=== PATIENT | female | born 1980 | race Caucasian/White ===

== ENCOUNTER 2021-06-22 02:12 | Emergency (ER) | payer SELFPAY ==
[~2021-06-22] VITALS: Ht 167.6 cm; Wt 50.0 kg
[2021-06-22 03:46] LABS: BASOPHILS % 0.6 % (0.0-2.0); EOSINOPHILS % 0.2 % (0.0-5.0); HEMATOCRIT. 37.1 % (36.0-48.0); HEMOGLOBIN. 12.5 g/dL (12.0-16.0); MEAN CORPUSCULAR HEMOGLOBIN 28.4 pg (28.0-32.0); MEAN CORPUSCULAR VOLUME 84.5 fL (81.0-99.0); MEAN PLATELET VOLUME 7.9 fl (7.4-10.4); MONOCYTES % 6.6 % (2.0-8.0); NEUTROPHILS % 77.6 % (40.0-76.0); PLATELET 270 x1000/uL (130-400); RED BLOOD CELL COUNT 4.39 mill/uL (4.2-5.4); RED CELL DISTRIBUTION WIDTH 14.7 % (11.6-14.6)
[2021-06-22 03:59] LABS: CHLORIDE 110 mEq/L (98-107)
[2021-06-22 04:04] LABS: ETHANOL BLOOD < 10 mg/dL
[2021-06-22 04:07] LABS: HCG SCREEN NEGATIVE
[2021-06-22 18:38] VITALS: BP 149/65
== END 2021-06-22 14:00 | disposition home or self-care (01) ==
LOC: ER 02:12 → EDBD 02:12 → ER 14:00
DX: R41.82 Altered mental status, unspecified (principal)
CPT/HCPCS: 36415; 80053; 80305; 80307; 80320; 80329; 84703; 85025; 99284; G0480